=== PATIENT | male | born 1925 | race Caucasian/White ===

== ENCOUNTER 2016-09-15 05:00 | Emergency (ER) | payer MEDICARE, BC ==
[2016-09-15 05:20] VITALS: BP 127/66
[2016-09-15] MEDS ORDERED: Albuterol 0.083% 2.5 MG/3 ML Neb Soln NEB ONE (05:49)
--- NOTE | 2016-09-15 05:50 | EDM.PDOC ---
[id number] Throat pain, voice hoarse, lost voice Time Seen by Provider: 09/15/16 05:34 Source of Information: Reports: Patient History Limitations: Reports: No limitations - History of Present Illness INITIAL COMMENTS - FREE TEXT/NARRATIVE: Patient woke up this morning with severe throat pain, which developed into some shortness of breath. No new exposure to anything, has been ill with a respiratory illness. He states his shortness of breath improved while he has been here. He began to cough up sputum. He has a history of coronary artery disease, stents placed 2008, hypothyroidism, high cholesterol, GERD. He has no other complaints this morning. He denies any chest pain, nausea/vomiting, fever , chills, diarrhea, urinary problems. Onset: today, sudden Onset Date: 09/15/16 Onset Time: 04:00 Duration: Improving Location: Reports: other (throat) Quality: Reports: Ache Severity: moderate Improves with: Reports: Other (water, ice) Associated Symptoms: Reports: cough w sputum throat Pain Score (Numeric/FACES): 8 - Related Data Allergies Allergy/AdvReac Type Severity Reaction Status Date / Time Penicillins Allergy Cannot Verified 09/16/16 07:12 Remember Home Meds: Home Meds Clopidogrel [Plavix] 75 mg PO DAILY 10/07/14 [History] Ipratropium [Atrovent 0.06% Nasal [place]] 1 spray NASBOTH TID 10/07/14 [History] Levothyroxine Sodium 75 mcg PO DAILY 10/07/14 [History] Metoprolol Succinate 2 tab PO DAILY 10/07/14 [History] Multivitamin with Minerals [Multiple Vitamin] 1 tab PO DAILY 10/07/14 [History] Nitroglycerin [Nitrostat] 1 tab SL ASDIRECTED PRN 10/07/14 [History] Simvastatin [Zocor] 40 mg PO BEDTIME 10/07/14 [History] Cholecalciferol (Vitamin D3) [Vitamin D3] 2,000 unit PO DAILY 05/09/15 [History] Ciprofloxacin [Ciprofloxacin HCl] 250 mg PO BID@0700,1999 #10 tablet 05/13/15 [ Rx] Past Medical History HEENT History: Reports: Cataract, Hard of hearing, Impaired vision Cardiovascular History: Reports: High cholesterol, Hypertension, [place] Respiratory History: Reports: Intubation, previous Gastrointestinal History: Reports: GERD Musculoskeletal History: Reports: Arthritis Neurological History: Reports: CVA Endocrine/Metabolic History: Reports: Hypothyroidism Oncologic (Cancer) History: Reports: Other (see below) Other Oncologic History: basal cell carcinoma (forehead) Dermatologic History: Reports: Other (see below) Other Dermatologic History: basal cell carcinoma (forehead) - Past Surgical History GI Surgical History: Reports: Colonoscopy, Hernia repair/other Social & Family History - Family History Cardiac: Reports: Heart valve replacement : Reports: Other (see below) Other Family History: kidney disease (mother) OBGYN: Reports: Endocrine/Metabolic: Reports: Diabetes, type II Oncologic: Reports: Liver - Tobacco Use Smoking Status *Q: Former Smoker Years of Tobacco use: 20 Packs/Tins Daily: 2.5 Used Tobacco, but Quit: No - Alcohol Use Days Per Week of Alcohol Use: 0 - Recreational Drug Use Recreational Drug Use: No ED ROS GENERAL - Review of Systems Review Of Systems: See Below Constitutional: Reports: no symptoms HEENT: Reports: Throat pain Respiratory: Reports: Cough, Sputum Cardiovascular: Reports: No symptoms Endocrine: Reports: no symptoms GI/Abdominal: Reports: No symptoms : Reports: no symptoms Musculoskeletal: Reports: no symptoms Skin: Reports: no symptoms Neurological: Reports: No Symptoms Psychiatric: Reports: No symptoms Hematologic/Lymphatic: Reports: no symptoms Immunologic: Reports: no symptoms ED EXAM, GENERAL - Physical Exam Exam: See Below Exam Limited By: No limitations General Appearance: alert, WD/WN, no apparent distress Eye Exam: bilateral eye: EOMI, PERRL Ears: normal TMs Nose: normal inspection Throat/Mouth: No airway compromise, Inflammation, Other (posterior pharynx, uvula, erythema and edema) Neck: supple, non-tender, full range of motion, lymphadenopathy (L), lymphadenopathy (R) Respiratory/Chest: no respiratory distress, lungs clear, no accessory muscle use , chest non-tender, wheezing Cardiovascular: normal peripheral pulses, regular rate, rhythm, no edema GI/Abdominal: normal bowel sounds, soft, non tender, no organomegaly Extremities: normal inspection, normal range of motion, non-tender, no pedal edema, normal capillary refill Neurological: alert, oriented, CN II-XII intact, normal cognition Psychiatric: normal affect, normal mood Skin Exam: Warm, Dry, Intact Course - Vital Signs Last Recorded V/S: Last Vital Signs Temp 36.4 C 09/15/16 06:15 Pulse 94 09/15/16 06:15 Resp 16 09/15/16 06:15 BP 127/66 09/15/16 05:05 Pulse Ox 91 L 09/15/16 06:15 - Orders/Labs/Meds Labs: Laboratory Tests 09/15/16 Range/Units 05:30 POC Group A Strep Rpd Negative (NEGATIVE) Meds: Medications Discontinued Medications Generic Name Dose Route Start Last Admin Trade Name Herber PRN Reason Stop Dose Admin Albuterol 2.5 mg 09/15/16 05:49 09/15/16 06:03 Proventil Neb Soln NEB 09/15/16 05:50 2.5 mg ONETIME ONE Administration - Re-Assessments/Exams Free Text/Narrative Re-Assessment/Exam: 09/15/16 05:57 Rapid strep performed, negative Departure - Departure Time of Disposition: 06:40 Disposition: Home, Self-Care 01 Clinical Impression: Pharyngitis Qualifiers: Pharyngitis/tonsillitis etiology: unspecified etiology Qualified Code(s): J02.9 - Acute pharyngitis, unspecified Instructions: Pharyngitis, [id number], Sore Throat, [id number] Referrals: PCP,Unknown [Primary Care Provider] - Forms: ED Department Discharge Additional Instructions: Keep drinking water May try cepachol to numb the back of your throat as directed on the packagin Your rapid test for strep was negative, but we will send it for culture. If the culture grows, we will call you with any antibiotic to take Follow up with your primary doctor as needed Please call with any further questions or concerns - Problem List & Annotations (1) Pharyngitis SNOMED Code(s): 211338500 Code(s): J02.9 - ACUTE PHARYNGITIS, UNSPECIFIED Status: Acute Qualifiers: Pharyngitis/tonsillitis etiology: unspecified etiology Qualified Code(s): J02.9 - Acute pharyngitis, unspecified - Problem List Review Problem List Initiated/Reviewed/Updated: Yes - Assessment/Plan Assessment:: viral pharyngitis Plan: Keep drinking water May try cepachol to numb the back of your throat as directed on the packagin Your rapid test for strep was negative, but we will send it for culture. If the culture grows, we will call you with any antibiotic to take Follow up with your primary doctor as needed Please call with any further questions or concerns
== END 2016-09-15 06:40 | disposition home or self-care (01) ==
LOC: VM.ED 05:00
DX: J02.9 Acute pharyngitis, unspecified (principal); E78.00 Pure hypercholesterolemia, unspecified; I10 Essential (primary) hypertension; I25.2 Old myocardial infarction; K21.9 Gastro-esophageal reflux disease without esophagitis; M19.90 Unspecified osteoarthritis, unspecified site; E03.9 Hypothyroidism, unspecified; Z88.0 Allergy status to penicillin; Z79.899 Other long term (current) drug therapy; Z87.891 Personal history of nicotine dependence
CPT/HCPCS: 87081; 87880; 94640; 99285; J7620; 99283-GF

== ENCOUNTER 2016-09-16 06:57 | Emergency (ER) | payer MEDICARE, BC ==
[2016-09-16] MEDS ORDERED: cefTRIAXone 1 GM Vial IM ONE (07:11)
[2016-09-16] MEDS ORDERED: Albuterol/Ipratropium 3.0-0.5 MG/3 ML Neb Soln NEB ONE (07:11)
[2016-09-16] MEDS ORDERED: Ondansetron 4 MG Tab.DIS PO ONE (07:11)
--- NOTE | 2016-09-16 07:51 | EDM.PDOC ---
ED HISTORY OF PRESENT ILLNESS - General Chief Complaint: Respiratory Problem Stated Complaint: hard to breath Time Seen by Provider: 09/16/16 07:09 Source of Information: Reports: Patient, Family History Limitations: Reports: No limitations - History of Present Illness INITIAL COMMENTS - FREE TEXT/NARRATIVE: Patient seen by myself on Wednesday morning for similar complaints. At that time largely negative physical assessment except for diminished lung sounds, reddened posterior phyarnx, and enlarged uvula. He is having a hard time breathing, is still coughing. He did trip over his clothing today and has a small skin tear to his right elbow. His cough is producing a green mucous. Symptom Onset Date: 09/13/16 Timing/Duration: Reports: Getting worse Severity: moderate Location, General: Reports: neck, chest Associated Symptoms (General): Reports: cough w sputum, fever/chills, shortness of breath - Related Data Allergies/ADRs: Allergies Allergy/AdvReac Type Severity Reaction Status Date / Time Penicillins Allergy Cannot Verified 09/16/16 07:12 Remember Home Meds: Home Meds Clopidogrel [Plavix] 75 mg PO DAILY 10/07/14 [History] Ipratropium [Atrovent 0.06% Nasal [place]] 1 spray NASBOTH TID 10/07/14 [History] Levothyroxine Sodium 75 mcg PO DAILY 10/07/14 [History] Metoprolol Succinate 2 tab PO DAILY 10/07/14 [History] Multivitamin with Minerals [Multiple Vitamin] 1 tab PO DAILY 10/07/14 [History] Nitroglycerin [Nitrostat] 1 tab SL ASDIRECTED PRN 10/07/14 [History] Simvastatin [Zocor] 40 mg PO BEDTIME 10/07/14 [History] Cholecalciferol (Vitamin D3) [Vitamin D3] 2,000 unit PO DAILY 05/09/15 [History] Ciprofloxacin [Ciprofloxacin HCl] 250 mg PO BID@0700,2000 #10 tablet 05/13/15 [ Rx] Past Medical History HEENT History: Reports: Cataract, Hard of hearing, Impaired vision Cardiovascular History: Reports: High cholesterol, Hypertension, [place] Respiratory History: Reports: Intubation, previous Gastrointestinal History: Reports: GERD Musculoskeletal History: Reports: Arthritis Neurological History: Reports: CVA Endocrine/Metabolic History: Reports: Hypothyroidism Oncologic (Cancer) History: Reports: Other (see below) Other Oncologic History: basal cell carcinoma (forehead) Dermatologic History: Reports: Other (see below) Other Dermatologic History: basal cell carcinoma (forehead) - Past Surgical History GI Surgical History: Reports: Colonoscopy, Hernia repair/other Social & Family History - Family History Cardiac: Reports: Heart valve replacement : Reports: Other (see below) Other Family History: kidney disease (mother) OBGYN: Reports: Endocrine/Metabolic: Reports: Diabetes, type II Oncologic: Reports: Liver - Tobacco Use Smoking Status *Q: Unknown Ever Smoked Years of Tobacco use: 20 Packs/Tins Daily: 2.5 Used Tobacco, but Quit: No - Alcohol Use Days Per Week of Alcohol Use: 0 - Recreational Drug Use Recreational Drug Use: No ED ROS GENERAL - Review of Systems Review Of Systems: See Below Constitutional: Reports: fever, chills HEENT: Reports: Throat pain Respiratory: Reports: Shortness of Breath Cardiovascular: Reports: No symptoms Endocrine: Reports: no symptoms GI/Abdominal: Reports: No symptoms : Reports: no symptoms Musculoskeletal: Reports: no symptoms Skin: Reports: no symptoms Neurological: Reports: No Symptoms Psychiatric: Reports: No symptoms Hematologic/Lymphatic: Reports: no symptoms Immunologic: Reports: no symptoms ED EXAM, GENERAL - Physical Exam Exam: See Below Exam Limited By: No limitations General Appearance: alert, WD/WN, no apparent distress, mild distress Eye Exam: bilateral eye: EOMI, PERRL Ears: normal TMs Nose: normal inspection Throat/Mouth: Normal voice, No airway compromise, Inflammation, Other ( posterior oral pharynx erythematous, edematous uvula) Head: atraumatic, normocephalic Neck: normal inspection Respiratory/Chest: no respiratory distress, lungs clear, decreased breath sounds Cardiovascular: normal peripheral pulses, regular rate, rhythm Extremities: normal inspection, normal range of motion, non-tender, no pedal edema, normal capillary refill Neurological: alert, oriented, CN II-XII intact, normal cognition, normal gait Psychiatric: normal affect, normal mood Skin Exam: Wound/incision (1/4 cm skin tear to right elbow; bandaged) Course - Vital Signs Last Recorded V/S: Last Vital Signs Temp 38.8 C H 09/16/16 07:05 Pulse 104 H 09/16/16 07:05 Resp 24 H 09/16/16 07:05 BP 116/49 L 09/16/16 07:05 Pulse Ox 85 L 09/16/16 07:05 - Orders/Labs/Meds Orders: Active Orders 24 hr Category Date Time Status RT Aerosol Therapy [RC] ASDIRECTED Care 09/16/16 07:12 Ordered Chest 2V [CR] Stat Exams 09/16/16 07:11 Ordered C-REACTIVE PROTEIN [CHEM] Stat Lab 09/16/16 07:11 Ordered CBC WITH AUTO DIFF [HEME] Stat Lab 09/16/16 07:11 Ordered Azithromycin [Zithromax] Med 09/16/16 08:00 Ordered 500 mg PO DAILY Medication Orders Azithromycin (Zithromax) 500 mg PO DAILY MIKAL Meds: Medications Generic Name Dose Route Start Last Admin Trade Name Freq PRN Reason Stop Dose Admin Azithromycin 500 mg 09/16/16 08:00 Zithromax PO DAILY MIKAL Discontinued Medications Generic Name Dose Route Start Last Admin Trade Name Freq PRN Reason Stop Dose Admin Albuterol/Ipratropium 3 ml 09/16/16 07:11 09/16/16 07:29 Duoneb 3.0-0.5 Mg/3 Ml NEB 09/16/16 07:12 3 ml ONETIME ONE Administration Ceftriaxone Sodium 1 gm 09/16/16 07:11 09/16/16 07:28 Rocephin IM 09/16/16 07:12 1 gm ONETIME ONE Administration Ondansetron HCl 4 mg 09/16/16 07:11 09/16/16 07:28 Zofran Odt PO 09/16/16 07:12 4 mg ONETIME ONE Administration - Re-Assessments/Exams Free Text/Narrative Re-Assessment/Exam: 09/16/16 07:57 chest x-ray results include small bilateral effusions, mild left basilar scarring/atelectasis Departure - Departure Time of Disposition: 09:14 Disposition: Home, Self-Care 01 Condition: good Clinical Impression: Acute streptococcal pharyngitis Instructions: Strep Throat, [id number] Forms: ED Department Discharge Additional Instructions: I have given you a prescription for Azithromycin for your strep throat as well as to help cover for any possible infection that may be starting in your lungs. Make sure you finish the course of antibiotic, even if you start to feel better. I do want you to come back on an outpatient basis on and Wednesday for antibiotic injections and so we can keep track of how you are doing. Try to return at the same time each day. Make sure to also take your medrol dose pack as directed and with food. Please follow up with your primary doctor as needed. Stay hydrated. If you continue to feel that your illness is worsening, please return to either the clinic or emergency department. Please call with any questions or concerns. - Problem List & Annotations (1) Acute streptococcal pharyngitis SNOMED Code(s): 64443525, 173462993 Code(s): J02.0 - STREPTOCOCCAL PHARYNGITIS Status: Acute Priority: Medium Current Visit: Yes - Problem List Review Problem List Initiated/Reviewed/Updated: Yes - My Orders Last 24 Hours: My Active Orders 09/16/16 07:11 Chest 2V [CR] Stat C-REACTIVE PROTEIN [CHEM] Stat CBC WITH AUTO DIFF [HEME] Stat 09/16/16 07:12 RT Aerosol Therapy [RC] ASDIRECTED 09/16/16 08:00 Azithromycin [Zithromax] 500 mg PO DAILY - Assessment/Plan Admission H&P: Please use this note as an admission H&P Last 24 Hours: My Active Orders 09/16/16 07:11 Chest 2V [CR] Stat C-REACTIVE PROTEIN [CHEM] Stat CBC WITH AUTO DIFF [HEME] Stat 09/16/16 07:12 RT Aerosol Therapy [RC] ASDIRECTED 09/16/16 08:00 Azithromycin [Zithromax] 500 mg PO DAILY Assessment:: Strep throat, demonstrated by positive culture grown from prior visit. Plan: I have given you a prescription for Azithromycin for your strep throat as well as to help cover for any possible infection that may be starting in your lungs. Make sure you finish the course of antibiotic, even if you start to feel better. I do want you to come back on an outpatient basis on and Wednesday for antibiotic injections and so we can keep track of how you are doing. Try to return at the same time each day. Please follow up with your primary doctor as needed. Stay hydrated. If you continue to feel that your illness is worsening, please return to either the clinic or emergency department. Please call with any questions or concerns.
[2016-09-16] MEDS ORDERED: Azithromycin 250 MG Tab PO SCH (08:00)
[2016-09-16 09:20] VITALS: BP 118/78
== END 2016-09-16 09:13 | disposition home or self-care (01) ==
LOC: VM.ED 06:57
DX: J02.0 Streptococcal pharyngitis (principal); E78.00 Pure hypercholesterolemia, unspecified; I25.2 Old myocardial infarction; Z88.0 Allergy status to penicillin; Z79.899 Other long term (current) drug therapy
CPT/HCPCS: 36415; 71020; 83605; 85025; 86140; 94640; 96372; 99284; A9270; J0696

== ENCOUNTER 2016-09-22 12:15 | Inpatient (IN) | payer MEDICARE, BC ==
[2016-09-22] MEDS ORDERED: Sodium Chloride 0.9% 10 ML Syringe FLUSH PRN (12:32)
[2016-09-22] MEDS ORDERED: Sodium Chloride 0.9% 500 ML IV ONE (12:34)
[2016-09-22] MEDS ORDERED: Lactated Ringers 1,000 ML IV SCH (12:45)
[2016-09-22] MEDS ORDERED: SODIUM CHLORIDE 0.9% IV ONE (13:00)
[2016-09-22] MEDS ORDERED: Nitroglycerin 0.4 MG Tab.SL SL PRN (14:54)
[2016-09-22] MEDS ORDERED: Sodium Chloride 0.9% 500 ML IV SCH (15:15)
[2016-09-22] MEDS ORDERED: Albuterol/Ipratropium 3.0-0.5 MG/3 ML Neb Soln NEB PRN (15:16)
[2016-09-22] MEDS: Metoprolol Succinate 50 MG Tab.ER PO SCH (15:36)
[2016-09-22] MEDS ORDERED: Sodium Chloride 0.9% 1,000 ML IV SCH (16:00)
[2016-09-22] MEDS: Sodium Chloride 0.9% 1,000 ML IV SCH ×2 (16:04→21:16)
--- NOTE | 2016-09-22 16:44 | HP ---
CHIEF COMPLAINT: Congestion, fall, and fatigue. HISTORY OF PRESENT ILLNESS: This is an 89-year-old male, who was feeling ill, who was in the emergency room 3 times last week. He had cough. There was some concern for pneumonia. He was also diagnosed with strep throat after a positive culture. His white count was like 18,000, but lactic was normal. They did encourage him to stay in the hospital, but the patient decided he wanted to go home. He received some azithromycin. He received a Medrol dose pack. He returned twice for IV Rocephin. He had some fever and chills, but they are not any worse. He has just felt weak. He is hardly eating anything. He states that, I might have had a minor stroke I cannot think clearly. He said he feels better in the room when he came on. He is definitely acting different than he normally does. His son states he has also tried to changes his oxygen tubing and things, but the patient sort of got upset when we talked about his memory. The patient states when he coughs, he sort of spits up pills when they gave him the nebulizer twice in the ER, it cleared his airway and he did feel better. Heart rate today in the clinic was sounding a little bit more irregular and tachycardic. He does have a history of atrial fibrillation, but had no further episode and is not on Coumadin. He denies any chest pain. He did fall about 3 to 4 days ago injuring his right elbow, but that seems to be healing up okay. He did not hit his head when he fell. EKG in the clinic showed a heart rate 140 with SVT. His blood pressure was 100 systolic. He appeared dehydrated and he was agreeable to hospital admission. ALLERGIES: Penicillin, although he tolerated Rocephin. MEDICATION: His medication list includes Plavix 75 mg which he takes at night. Zocor 40 mg at night. Prilosec 20 mg twice daily. Levothyroxine 75 mcg in the morning. Toprol 50 mg daily. Nitroglycerin as needed and vitamin D 2000. PAST MEDICAL HISTORY: 1. History of basal cell skin cancer. 2. Coronary artery disease, status post angiogram in 2008 with stenting; on Plavix. Aspirin stopped due to nose bleeds. 3. Episode in Sep, 2014 of atrial fibrillation converted with Cardizem. He did not continue on Coumadin after Zio patch showed no atrial fibrillation. 4. Chronic hypoxia at night using nocturnal oxygen. 5. Chronic rhinitis impaired fasting glucose. 6. Hypothyroidism, due to acquired atrophy of the thyroid. 7. Hyperlipidemia. 8. Primary hyperparathyroidism with calcium is routinely up to 11. 9. History of stroke, 2009; right cerebellar. 10.Esophageal reflux. 11.Diverticulitis of the large intestine. 12.Chronic kidney disease, stage III; baseline creatinine 1.5 to 1.7. 13.Hernia of the abdominal wall with previous admit for bowel obstructions. Surgically, the patient has had a hernia repair incarcerated umbilical. FAMILY HISTORY: Both parents are . Brother is with heart disease. SOCIAL HISTORY: He lives at home with his . He does drink occasional alcoholic like one glass of wine. He quit smoking like in 1970. He has a son who is involved in his care who is with at his visit today. He also has 3 other children. He enjoys making wine. REVIEW OF SYSTEMS: General: Feels weak and tired. He has lost about 6 pounds in the last couple of months. He has had chills, but no fever. HEENT: No sore throat, but he has noted some trouble swallowing and coughing. He has had some sinus congestion as well. Heart: He feels racing, but no chest pain. Respiratory: He feels short of breath. He has had a productive cough. Abdominal: No abdominal pain. No nausea, vomiting, or diarrhea. Musculoskeletal: No new aches or pains. Otherwise, all systems reviewed and found to be negative unless otherwise stated. The patient himself did not feel he was confused, but he does admit to feeling anxious. PHYSICAL EXAMINATION: Vital Signs: Weight 199 pounds, blood pressure 100/58, temperature 96.8, pulse 118, and O2 94 on room air. General: He is in no acute distress. He looks frail and fatigued. He looks almost pale. Heart: Regular rate and rhythm with tachycardia. I did not feel it was irregular. Lungs: Sounds show some decreased entry in the right base. Otherwise, the left lung was clear. There are no crackles or wheezes. Abdomen: Nondistended and nontender. Positive bowel sounds. Extremities: Warm and dry. No edema. Mental status: He is alert and orientated x3. He did answer all questions appropriately. Psychiatry: He did appear anxious; sometimes he got a little off task with discussions, but was easily redirected. LABORATORY DATA: Lab work reviewed through the clinic did show his white count which was 18 last week to have improved down to 11.3, hemoglobin stable at 12.6, and platelets 390. Vitamin D and PTH are pending. Comp panel glucose 111, BUN 32, creatinine 1.8, sodium 136, potassium 4.5, chloride 98, bicarb 26, and calcium 10.9. ALT and AST are all normal. CT of the head was done, which showed generalized atrophy with mild small vessel changes, but no acute findings. Chest x-ray repeated in the clinic 1. Mild congestive failure with very slight pulmonary venous congestion. 2. Possible infiltrate, right mid lung field, as well as within the left lung base. Followup examination recommended after appropriate medical therapy. I felt pretty similar to his CXR from last week ASSESSMENT: 1. Tachycardia looks to be in SVT probably contributing the dehydration and weakness. Discussed admission. The patient will be admitted and placed on telemetry. We will give him a 500 mL bolus. Once the patient got over the hospital and hooked up to telemetry, he actually converted to a sinus rhythm at 75. We will keep him on telemetry to monitor. 2. Recent community-acquired pneumonia. Treated with couple of days doses of IV Rocephin and oral Zithromax. If no fever and white count continues to improve, I will not order any additional antibiotics. 3. Hypercalcemia, we will repeat his lab work. 4. History of hypothyroidism given his tachycardia we will repeat his TSH. It has not been checked since last summer. 5. Known coronary artery disease. We will continue his Plavix. 6. Chronic kidney disease. He is just above baseline at 1.8 baseline 1.5 to 1.7. We will repeat that tomorrow. We will have him on normal saline 100 mL/h after the bolus. PLAN: At this point, the patient will be admitted to acute care for IV fluids for IV telemetry monitoring. If he has tachycardia again he may need some Cardizem to determine his rates, but with his hypotension, I did not feel this was indicated. We will get him up and working with therapies and see if he is stable to return home probably in the next couple of days. I do anticipate he will be under acute care with a 2 midnight stay. We will get him also on nebulizers as they seem to help his cough before and also on some Mucinex and oxygen as needed. He is a code level 1. For DVT prophylaxis, I will give him heparin 5000 twice daily. MKA: 09/22/2016 15:16:38 MODL: 09/22/2016 16:35:04 /[id number] MTDD
[2016-09-22] MEDS: Clopidogrel 75 MG Tab PO SCH (20:03)
[2016-09-22] MEDS: guaiFENesin 600 MG Tab.ER PO SCH (20:03)
[2016-09-22] MEDS: Simvastatin 40 MG Tab PO SCH (20:04)
[2016-09-22] MEDS: Heparin Sodium 5,000 Units/ML Vial SUBCUT SCH (20:04)
[2016-09-23] MEDS: Levothyroxine 75 MCG Tab PO SCH (06:14)
[2016-09-23] MEDS: Sodium Chloride 0.9% 1,000 ML IV SCH (07:36)
[2016-09-23] MEDS: guaiFENesin 600 MG Tab.ER PO SCH ×2 (08:03→20:58)
[2016-09-23] MEDS: Heparin Sodium 5,000 Units/ML Vial SUBCUT SCH ×2 (08:03→20:57)
[2016-09-23] MEDS: Metoprolol Succinate 50 MG Tab.ER PO SCH (08:03)
[2016-09-23] MEDS ORDERED: Metoprolol Succinate 50 MG Tab.ER PO ONE (08:45)
--- NOTE | 2016-09-23 09:30 | PN ---
Progress Note for JULISSA CASE Date: 09/23/2016 Room #: VM.206 SUBJECTIVE: This is hospital day #2 on an 89-year-old admitted with SVT and weakness yesterday after an outpatient treatment of pneumonia. His cough has improved. His breathing has improved. He has not been using the p.r.n. nebs. He continues to have some trouble with swallowing. He has had an esophagram, which showed some age related changes. Otherwise, he is not having any pain. His heart rates did go back up. He appears to be in atrial fibrillation on telemetry with rates into the 120s and 130s. He is back in a sinus rhythm this morning. He has had 1800 of fluid in and 800 out. OBJECTIVE: Vital Signs: His temperature 98, pulse 70, blood pressure 122/56, respiratory rate 20, O2 of 93% on 2 L. General: He is in no acute distress. Heart: Regular rate and rhythm. Lungs: Sounds are clear to auscultation bilaterally without crackles or wheezes. Abdomen: Positive bowel sounds. Soft and nontender. Extremities: Warm and dry. No edema. Mental Status: He is alert and orientated x3. Psych: He is not overly anxious or depressed. ASSESSMENT: 1. Tachycardia with supraventricular tachycardia, then converted to sinus he has been on telemetry with some episodes of atrial fibrillation. Overnight we will continue to monitor and try to get an EKG when he goes into the fast irregular rates. 2. Recent community-acquired pneumonia. Infiltrates in the right lung and left lung base. He has completed antibiotics. Blood counts are improving. He is afebrile. 3. Hypercalcemia, chronic. He has primary hyperparathyroidism. 4. Hypothyroidism with mildly elevated TSH. No change in dose, given tachycardia. 5. Known coronary artery disease on Plavix. He denies chest pain. 6. Chronic kidney disease, at baseline creatinine now 1.7. 7. Trouble swallowing. He has had an esophagram we discussed doing a speech swallow evaluation given his pneumonia. He is agreeable to this. PLAN: At this point, we will stop IV fluids after this liter. We will continue monitoring with telemetry. We will try to get an EKG if he goes into irregular rhythms. For DVT prophylaxis, I will continue him on heparin. We will start incentive spirometry. Anticipate, he will be stable for discharge home tomorrow. I will also increase his Toprol to help with heart rates. MKA: 09/23/2016 08:31:07 MODL: 09/23/2016 08:58:54 /[id number]
[2016-09-23] MEDS: Simvastatin 40 MG Tab PO SCH (20:58)
[2016-09-23] MEDS: Clopidogrel 75 MG Tab PO SCH (20:58)
[2016-09-24] MEDS: Levothyroxine 75 MCG Tab PO SCH (06:26)
[2016-09-24] MEDS: guaiFENesin 600 MG Tab.ER PO SCH (07:42)
[2016-09-24] MEDS: Heparin Sodium 5,000 Units/ML Vial SUBCUT SCH (07:44)
[2016-09-24] MEDS ORDERED: Metoprolol Succinate 50 MG Tab.ER PO SCH (08:00)
[2016-09-24 10:52] VITALS: BP 112/59
[2016-09-24] MEDS ORDERED: Sertraline 25 MG Tab PO SCH (17:15)
--- NOTE | 2016-09-25 01:18 | DISCH ---
PRIMARY DISCHARGE DIAGNOSES: 1. Atrial flutter with tachycardia converted back to a sinus rhythm with several episodes of irregular heart beats probably atrial fibrillation, but converted back to sinus on discharge. Discussed with the patient, he refuses to take Coumadin. 2. Recent community-acquired pneumonia, right middle lobe and left lung base treated through the emergency room with some IV Rocephin and Zithromax. 3. The patient is afebrile with improving white count, so no further antibiotics were given. Hypercalcemia longstanding with primary hyperparathyroidism. 1. Outpatient lab work reviewed and PTH had improved down to 101 in the clinic. 2. History of hypothyroidism with mildly elevated TSH. We will keep the dose the same. 3. Known history of coronary artery disease and stroke. He is on Plavix. 4. Chronic kidney disease, baseline creatinine 1.5 to 1.7 with creatinine down to 1.5 on discharge. 5. Dysphagia possibly related to his previous stroke. He will follow up with speech for a video swallow eval. 6. Chronic diastolic heart failure stable without any exacerbations. 7. Chronic hypoxia, he has been on oxygen at night long-term, but after this bout of pneumonia, he was requiring oxygen with activity and at rest. REASON FOR ADMISSION: On the date of admission, this 89-year-old came into the clinic. He was dehydrated and weak. He was tachycardic with heart rate of 140, which showed SVT. He was quite anxious and we brought him over to the hospital. As he was getting ready to get started on some treatments, he converted back to a sinus rhythm. He was placed on IV fluids and this was stopped after he was eating better and doing better. His creatinine was 1.8, did improve down to 1.7. He was feeling well but still having trouble swallowing, which he had had for several months and was evaluated previously by an esophagram in the clinic. He was seen by speech, they recommended a soft diet, no straws, and lots of liquids, which he worked on, also some swallow exercises. He did have a home O2 eval done on the day of discharge, he was 88 at rest on room air, he was 94 with 2 L on room air and 87 on room air with activity and up to 92% on 2 L with activity, so recommendations were made for him to keep 2 L of oxygen to keep sats above 90%. The patient also was working with incentive spirometry. He did not require any nebulizer treatments during his stay. His white count was mildly elevated to 11.3, but did improve during his stay. He had no fevers. He was overall feeling well, doing well, and ready for discharge, other than some anxiety which had been long-standing and he was agreeable to try some Zoloft, he understands it will not start working right away. Otherwise, he is discharged home with home health. He will need nursing to teach and assess as well as speech to help with new techniques for swallowing to help avoid further episodes of pneumonia particularly aspiration pneumonia although this was not ever confirmed to be as no cultures were taken as he was previously treated through the emergency room. He will be homebound due to his weakness and deconditioning from his previous stay. Because of his stay for the tachycardia and dehydration, he requires assistive another to leave his home and his son has been bringing him in for appointments. I will periodically review this plan of care. HOME HEALTH ADDENDUM: Amish Bernardo is now going to be on oxygen during the day in addition to nighttime oxygen and be working with the speech therapist. He will follow up with the speech therapist on 08/12 for a video swallow eval. PHYSICAL EXAMINATION: Vital signs: Discharging vitals, temperature 98.2, pulse 64, blood pressure 112/59, respiratory rate 20, O2 of 94 on 2 L. General: He is in no acute distress. Heart: Regular rate and rhythm. S1, S2 without murmur. Lungs: Sounds are clear to auscultation bilaterally without crackles or wheezes. Abdomen: Nondistended, nontender, positive bowel sounds. Extremities: Warm and dry. No edema. Mental Status: He is alert and orientated x3. Psych: He is mildly anxious, he apologized for that. He says he is just anxious to get home. MKA: 09/24/2016 17:06:02 MODL: 09/25/2016 01:09:15 /[id number] MTDD
== END 2016-09-24 17:45 | disposition home health service (06) | DRG 308 ==
LOC: VM.MS 12:17
PROVIDERS: ADMIT Internal Medicine; ATTEND Internal Medicine
DX: I47.1 Supraventricular tachycardia (principal); J18.9 Pneumonia, unspecified organism; I50.32 Chronic diastolic (congestive) heart failure; E21.3 Hyperparathyroidism, unspecified; E03.9 Hypothyroidism, unspecified; I25.10 Atherosclerotic heart disease of native coronary artery without angina pectoris; R09.02 Hypoxemia; Z99.81 Dependence on supplemental oxygen; I69.391 Dysphagia following cerebral infarction; R13.10 Dysphagia, unspecified; Z79.01 Long term (current) use of anticoagulants; K21.9 Gastro-esophageal reflux disease without esophagitis; N18.3 Chronic kidney disease, stage 3 (moderate); K46.9 Unspecified abdominal hernia without obstruction or gangrene; R41.0 Disorientation, unspecified
CPT/HCPCS: 36415; 70450; 80048; 84443; 85025; 92526-GN; 92610-GN; 94760; 97161-GP; A9270-GY; J1644; J7030

== ENCOUNTER 2016-10-04 00:29 | Emergency (ER) | payer MEDICARE, BC ==
--- NOTE | 2016-10-04 00:59 | EDM.PDOC ---
ED HPI Skin/Rash - General Chief Complaint: Laceration Stated Complaint: fall, laceration Time Seen by Provider: 10/04/16 00:36 Source: Reports: Patient, EMS notes reviewed, Family, RN, RN notes reviewed History Limitations: Reports: No limitations - History of Present Illness INITIAL COMMENTS - FREE TEXT/NARRATIVE: Patient is brought to the ED at [facility] via EMS after he sustained a scalp laceration secondary to a fall. Patient states when he got out of bed earlier this evening, he felt dizzy and fell to his left side, striking his head against a door frame. Patient denies any LOC. Patient denies any previous head injury or trauma. No previous head surgeries. Patient states he remembers the entire incident. Symptom Onset Date: 10/03/16 Symptom Onset Time: 23:50 Timing: Reports: still present, rapid onset Location, Skin: Reports: head Known Identified Source: yes - Related Data Allergies Allergy/AdvReac Type Severity Reaction Status Date / Time Penicillins Allergy Cannot Verified 09/22/16 12:38 Remember Home Meds: Ambulatory Orders Medication Instructions Recorded Confirmed Clopidogrel [Plavix] 75 mg PO DAILY 10/07/14 09/22/16 Nitroglycerin [Nitrostat] 1 tab SL ASDIRECTED PRN 10/07/14 09/22/16 Simvastatin [Zocor] 40 mg PO BEDTIME 10/07/14 09/22/16 Cholecalciferol (Vitamin D3) 2,000 unit PO DAILY 05/09/15 09/22/16 [Vitamin D3] Levothyroxine 75 mcg PO ACBREAKFAST 09/22/16 09/22/16 Metoprolol Succinate [Toprol XL] 100 mg PO DAILY #30 tab.er 09/24/16 Sertraline [Zoloft] 25 mg PO BEDTIME #30 tablet 09/24/16 Past Medical History HEENT History: Reports: Cataract, Hard of hearing, Impaired vision Cardiovascular History: Reports: High cholesterol, Hypertension, SD Respiratory History: Reports: Intubation, previous, Other (see below) Other Respiratory History: pneumonia Gastrointestinal History: Reports: GERD Musculoskeletal History: Reports: Arthritis Neurological History: Reports: CVA Endocrine/Metabolic History: Reports: Hypothyroidism Oncologic (Cancer) History: Reports: Other (see below) Other Oncologic History: basal cell carcinoma (forehead) Dermatologic History: Reports: Other (see below) Other Dermatologic History: basal cell carcinoma (forehead) - Past Surgical History GI Surgical History: Reports: Colonoscopy, Hernia repair/other Social & Family History - Family History Family Medical History: Noncontributory Cardiac: Reports: Heart valve replacement : Reports: Other (see below) Other Family History: kidney disease (mother) OBGYN: Reports: Endocrine/Metabolic: Reports: Diabetes, type II Oncologic: Reports: Liver - Tobacco Use Smoking Status *Q: Former Smoker Years of Tobacco use: 15 Packs/Tins Daily: 2.5 Used Tobacco, but Quit: Yes Month Tobacco Last Used: 1965 - Alcohol Use Days Per Week of Alcohol Use: 0 - Recreational Drug Use Recreational Drug Use: No ED ROS GENERAL - Review of Systems Review Of Systems: See Below Constitutional: Denies: fever, chills, weakness Respiratory: Reports: Cough. Denies: Shortness of Breath Cardiovascular: Denies: Chest pain, Blood pressure problem, Lightheadedness, Palpitations Skin: Reports: wound (laceration to top of head) Neurological: Reports: Dizziness. Denies: Headache, Numbness, Paresthesia, Tingling ED EXAM, SKIN/RASH Exam: See Below Exam Limited By: No limitations General Appearance: alert, no apparent distress Eye Exam: bilateral eye: EOMI, normal inspection, PERRL Ears: normal external exam, normal canal, hearing grossly normal, normal TMs Nose: normal inspection, normal mucosa, no blood Throat/Mouth: Normal inspection, Normal oropharynx, No airway compromise Head: normocephalic, other (scalp laceration) Neck: supple Respiratory/Chest: no respiratory distress, decreased breath sounds Cardiovascular: regular rate, rhythm Extremities: normal inspection Neurological: alert, oriented Skin: Warm, Dry, Normal color, No rash, Wound/incision Location, Skin: head, other (Y shape laceration to top of head; small grade venous ooze) ED SKIN PROCEDURES - Laceration/Wound Repair Occipital Head Appearance: subcutaneous, irregular, clean Distal NVT: neuro & vascular intact Skin prep: chlorhexidine (hibiciens), saline Exploration/Debridement/Repair: wound explored, explored to base, no foreign material found, wound margins revised Closed with: dermabond, escobar # of sutures: 17 Sterile dressing applied: nurse Tetanus status addressed: Yes Complications: No Progress/Comments: Laceration is Y shaped with one flap. Left side of Y measures 1.5. Right side of Y measures 8cm. Both side closed with escobar. 17 total. Course - Vital Signs Last Recorded V/S: Last Vital Signs Temp 36.3 C 10/04/16 00:31 Pulse 80 10/04/16 00:35 Resp 20 10/04/16 00:31 BP 97/50 L 10/04/16 00:35 Pulse Ox 91 L 10/04/16 00:31 Departure - Departure Time of Disposition: 01:03 Disposition: Home, Self-Care 01 Condition: good Clinical Impression: Closed head injury without loss of consciousness Qualifiers: Encounter type: initial encounter Qualified Code(s): S09.90XA - Unspecified injury of head, initial encounter Occipital scalp laceration Qualifiers: Encounter type: initial encounter Qualified Code(s): S01.01XA - Laceration without foreign body of scalp, initial encounter Instructions: Laceration Care, Adult, [id number], Stitches, [place], or Adhesive Wound Closure, [id number], Head Injury, Adult, [id number] Forms: ED Department Discharge Additional Instructions: 1. Stay well hydrated and rest 2. Keep stapled area clean and dry 3. May shower/bathe as usual 4. Continue taking same medications at home 5. [place] need to stay in for 10 days 6. See your Primary in 10 days for a recheck and possible staple removal - Problem List Review Problem List Initiated/Reviewed/Updated: Yes
[2016-10-04 01:02] VITALS: BP 86/47
== END 2016-10-04 01:21 | disposition home or self-care (01) ==
LOC: VM.ED 00:29
DX: S09.90XA Unspecified injury of head, initial encounter (principal); S01.01XA Laceration without foreign body of scalp, initial encounter; E78.00 Pure hypercholesterolemia, unspecified; K21.9 Gastro-esophageal reflux disease without esophagitis; E03.9 Hypothyroidism, unspecified; I25.2 Old myocardial infarction; I10 Essential (primary) hypertension; Z87.891 Personal history of nicotine dependence; Z88.0 Allergy status to penicillin; Z79.899 Other long term (current) drug therapy
CPT/HCPCS: 12004; 12034; 99282-GF-25; 99284